=== PATIENT | male | born 1985 | race Caucasian/White ===

== ENCOUNTER 2023-09-20 14:18 | Emergency (ER) | payer BC ==
[2023-09-20] MEDS ORDERED: Lidocaine 1% 5 ML VIAL INJECT STA (15:30)
== END 2023-09-20 16:06 | disposition home or self-care (01) ==
LOC: MW.ED 14:18
DX: S61.412A Laceration without foreign body of left hand, initial encounter (principal); I10 Essential (primary) hypertension; Z86.16 Personal history of COVID-19; Z79.899 Other long term (current) drug therapy; W26.8XXA Contact with other sharp object(s), not elsewhere classified, initial encounter
CPT/HCPCS: 12002; 99282; 99283; J3490

== ENCOUNTER 2024-11-24 18:30 | Emergency (ER) | payer BC | END 2024-11-24 21:18 | disposition left against medical advice (07) | LOC: MW.ED 18:30 | DX: Z53.21 Procedure and treatment not carried out due to patient leaving prior to being seen by health care provider (principal) ==